=== PATIENT | male | born 1955 | race Caucasian/White ===

== ENCOUNTER 2017-02-20 10:47 | Emergency (ER) | payer OTHER ==
[~2017-02-20] VITALS: Ht 188 cm; Wt 87.3 kg
[~2017-02-20 10:47] MED LIST: ANDROGEL5 GM TD; BYSTOLIC10 MG PO; CALCIUM ACETAT667 MG PO; CARDIZEM CD,CA120 MG PO; FEOSOL325 MG PO; FUROSEMIDE40 MG PO; Flomax PO; GAS-X80 MG PO; GLUCOPHAGE1000 MG PO; INSULIN ISOPHANE SC; KAYEXALATE15 GM/60 M PO; LEVOTHYROXINE200 MC1 PO; LIPITOR10 MG PO; LO-DOSE ASPIRIN81 M1 PO; Levothroid,Synthroid PO; MOTRIN600 MG PO; NIFEDIPINE ER60 MG PO; NORCO 5/3251 TABLET PO; NOVOLIN,HU100 UNITS1 SC; RENA-VITE RX T1 EACH PO; SODIUM BICARBO325 MG PO; TAMSULOSIN HCL0.4 MG PO; THERAGRAN1 TABLET PO; VALIUM2 MG PO; VITAMIN D1000 INTUN PO; VITAMIN D32000 UNI1 PO; Vicodin,Lortab 5/500 PO; [UNRECOGNIZED DRUG - OTHER] PO
[2017-02-20] MEDS ORDERED: LEVO-T75 MCG PO (10:59)
[2017-02-20] MEDS ORDERED: RENAL-VITE TAB0.8 MG PO (10:59)
[2017-02-20] MEDS ORDERED: MINOXIDIL2.5 MG PO (11:00)
[2017-02-20] MEDS ORDERED: LEXAPRO20 MG PO (11:00)
[2017-02-20] MEDS ORDERED: LABETALOL HCL200 MG PO (11:02)
[2017-02-20] MEDS ORDERED: PERCOCET 5/31 TABLET PO (14:54)
[2017-02-20 15:30] VITALS: BP 186/87
[2017-02-20] MEDS ORDERED: FLEXERIL10 MG PO (15:47)
== END 2017-02-20 15:33 | disposition home or self-care (01) ==
LOC: EME 10:47
DX: S50.01XA Contusion of right elbow, initial encounter (principal); M25.551 Pain in right hip; W10.1XXA Fall (on)(from) sidewalk curb, initial encounter; Y92.89 Other specified places as the place of occurrence of the external cause; Z89.512 Acquired absence of left leg below knee; I12.0 Hypertensive chronic kidney disease with stage 5 chronic kidney disease or end stage renal disease; N18.6 End stage renal disease; Z99.2 Dependence on renal dialysis; E11.9 Type 2 diabetes mellitus without complications; Z79.82 Long term (current) use of aspirin; Z86.73 Personal history of transient ischemic attack (TIA), and cerebral infarction without residual deficits; Z88.1 Allergy status to other antibiotic agents; Z88.6 Allergy status to analgesic agent; Z91.040 Latex allergy status
CPT/HCPCS: 73080; 73502; 99281; 99284; J2270

== ENCOUNTER → 2017-05-14 | Outpatient (CLI) | payer OTHER ==
[~2017-05-14] VITALS: Ht 188 cm; Wt 86.2 kg
[~2017-05-14] MED LIST changes: +FLEXERIL10 MG PO; +LABETALOL HCL200 MG PO; +LEVO-T75 MCG PO; +LEXAPRO20 MG PO; +MINOXIDIL2.5 MG PO; +PERCOCET 5/31 TABLET PO; +RENAL-VITE TAB0.8 MG PO; +SYMAX DUOTAB0.375 MG PO
[2017-05-14 10:08] LABS: HEMATOCRIT 36.1 % (38.0-50.0)
[2017-05-14 10:19] LABS: CHLORIDE 93 mEq/L (99-109); POTASSIUM 4.9 mEq/L (3.7-5.4); SODIUM 136 mEq/L (136-147)
[2017-05-14 10:20] LABS: GLUCOSE 105 mg/dL (70-99)
[2017-05-14 10:22] LABS: ANION GAP 15 MEQ/L (2-14)
[2017-05-14 10:24] LABS: GFR ESTIMATE (CALCULATED) 12 mL/min/
[2017-05-14 10:25] LABS: UREA NITROGEN (BUN) 42 mg/dL (9-23)
[2017-05-14 10:36] LABS: POINT-OF-CARE METER ID UU14107333
== END | disposition home or self-care (01) ==
LOC: AMB 09:07
PROVIDERS: Internal Medicine Gastroenterology
PROC: 0DJD8ZZ Inspection of Lower Intestinal Tract, Via Natural or Artificial Opening Endoscopic (ICD-10-PCS; principal; 2017-05-14)
DX: Z12.11 Encounter for screening for malignant neoplasm of colon (principal); K57.30 Diverticulosis of large intestine without perforation or abscess without bleeding; K64.8 Other hemorrhoids; K58.0 Irritable bowel syndrome with diarrhea; Z89.512 Acquired absence of left leg below knee; I12.9 Hypertensive chronic kidney disease with stage 1 through stage 4 chronic kidney disease, or unspecified chronic kidney disease; E11.22 Type 2 diabetes mellitus with diabetic chronic kidney disease; N18.9 Chronic kidney disease, unspecified; Z99.2 Dependence on renal dialysis; Z79.82 Long term (current) use of aspirin; Z86.73 Personal history of transient ischemic attack (TIA), and cerebral infarction without residual deficits; Z98.84 Bariatric surgery status; Z88.1 Allergy status to other antibiotic agents; Z88.6 Allergy status to analgesic agent
CPT/HCPCS: 80048; 82948; 85014; 85018; 93005

== ENCOUNTER 2017-06-11 07:05 | Day surgery (SDC) | payer OTHER ==
[~2017-06-11] VITALS: Ht 188 cm; Wt 84.0 kg
[2017-06-11 08:47] LABS: POINT-OF-CARE METER ID UU13113819
[2017-06-11 09:11] LABS: METH RESISTANT S AUREUS PCR NEGATIVE (NEGATIVE); PROBE CHECK PASS; SPECIMEN PROCESSING CONTROL PASS
== END 2017-06-11 09:10 | disposition home or self-care (01) ==
LOC: CATH 07:05
PROVIDERS: Surgery
PROC: 057Y3ZZ Dilation of Upper Vein, Percutaneous Approach (ICD-10-PCS; principal; 2017-06-11)
DX: T82.858A Stenosis of other vascular prosthetic devices, implants and grafts, initial encounter (principal); I12.0 Hypertensive chronic kidney disease with stage 5 chronic kidney disease or end stage renal disease; E11.22 Type 2 diabetes mellitus with diabetic chronic kidney disease; N18.6 End stage renal disease; Z99.2 Dependence on renal dialysis; Z86.73 Personal history of transient ischemic attack (TIA), and cerebral infarction without residual deficits; I83.90 Asymptomatic varicose veins of unspecified lower extremity
CPT/HCPCS: 82948; 87641; C1725; C1769; C1894; J1644; J2250; J3010

== ENCOUNTER 2017-07-10 08:07 | Day surgery (SDC) | payer OTHER ==
[~2017-07-10] VITALS: Ht 188 cm; Wt 83.0 kg
[2017-07-10 09:12] LABS: HEMATOCRIT 33.6 % (38.0-50.0); MCH 31.2 PG (29.0-34.0); MCV 100.9 FL (86-99); MEAN PLAT.VOLUME 10.2 uM^3 (9.0-12.4); PLATELET COUNT 219 K/uL (156-360); RBC DIS.WIDTH-CV 13.2 % (11.8-14.6); RBC DIS.WIDTH-SD 49.5 % (39-53); RED BLOOD COUNT 3.33 M/uL (4.00-5.50)
[2017-07-10 09:35] LABS: ANION GAP 14 MEQ/L (2-14); CHLORIDE 97 MEQ/L (99-109); POTASSIUM 4.9 MEQ/L (3.7-5.4); SAMPLE HEMOLYSIS CHECK 0; SAMPLE ICTERIC CHECK 0; SAMPLE LIPEMIA CHECK 0; SODIUM 138 MEQ/L (136-147)
[2017-07-10 09:41] LABS: GFR ESTIMATE (CALCULATED) 11 mL/min/; GLUCOSE 102 mg/dL (70-99); UREA NITROGEN (BUN) 54 mg/dL (9-23)
[2017-07-10 10:07] LABS: METH RESISTANT S AUREUS PCR POSITIVE (NEGATIVE)
[2017-07-10 10:11] LABS: PROBE CHECK PASS
[2017-07-10 10:20] VITALS: BP 183/80
[2017-07-10 13:20] LABS: POINT-OF-CARE METER ID UU13113675
[2017-07-10 13:42] VITALS: BP 164/80
[2017-07-10 14:24] VITALS: BP 160/70
== END 2017-07-10 14:28 | disposition home or self-care (01) ==
LOC: SDC 08:07
PROVIDERS: Surgery
PROC: 05HY33Z Insertion of Infusion Device into Upper Vein, Percutaneous Approach (ICD-10-PCS; principal; 2017-07-10)
PROC: B51W1ZZ Fluoroscopy of Dialysis Shunt/Fistula using Low Osmolar Contrast (ICD-10-PCS; principal; 2017-07-10)
PROC: 3E03317 Introduction of Other Thrombolytic into Peripheral Vein, Percutaneous Approach (ICD-10-PCS; principal; 2017-07-10)
PROC: 05WY07Z Revision of Autologous Tissue Substitute in Upper Vein, Open Approach (ICD-10-PCS; principal; 2017-07-10)
DX: T82.41XA Breakdown (mechanical) of vascular dialysis catheter, initial encounter (principal); I12.0 Hypertensive chronic kidney disease with stage 5 chronic kidney disease or end stage renal disease; E11.22 Type 2 diabetes mellitus with diabetic chronic kidney disease; N18.6 End stage renal disease; Z99.2 Dependence on renal dialysis; Z86.73 Personal history of transient ischemic attack (TIA), and cerebral infarction without residual deficits; E03.9 Hypothyroidism, unspecified; R94.31 Abnormal electrocardiogram [ECG] [EKG]
CPT/HCPCS: 80048; 82948; 85027; 87641; C1769; C1894; J0690; J1644; J2405; J2720; J3010

== ENCOUNTER 2017-07-29 12:45 | Day surgery (SDC) | payer OTHER ==
[2017-07-29 15:32] LABS: METH RESISTANT S AUREUS PCR POSITIVE (NEGATIVE)
[2017-07-29 15:37] LABS: PROBE CHECK PASS
== END 2017-07-29 16:33 | disposition home or self-care (01) ==
LOC: CATH 12:45
PROVIDERS: Surgery
DX: T82.858A Stenosis of other vascular prosthetic devices, implants and grafts, initial encounter (principal); N18.6 End stage renal disease; Z99.2 Dependence on renal dialysis
CPT/HCPCS: 87641; C1725; C1769; C1894; J1644; J2250; J3010

== ENCOUNTER 2017-12-23 12:10 | Day surgery (SDC) | payer OTHER ==
[~2017-12-23] VITALS: Ht 188 cm; Wt 85.0 kg
[~2017-12-23 12:10] MED LIST changes: +FLOMAX0.4 MG PO; +IMODIUM A-D2 M2 PO
[2017-12-23 13:04] LABS: HEMATOCRIT 38.1 % (38.0-50.0); HEMOGLOBIN 12.3 G/DL (12.5-16.6); MCH 32.1 PG (29.0-34.0); MCHC 32.3 G/DL (30.0-36.0); MCV 99.5 FL (86-99); PLATELET COUNT 244 K/uL (156-360); RBC DIS.WIDTH-SD 50.7 % (39-53); RED BLOOD COUNT 3.83 M/uL (4.00-5.50); WHITE BLOOD COUNT 6.5 K/uL (4.1-10.2)
[2017-12-23 13:23] VITALS: BP 142/80
[2017-12-23 13:41] LABS: CHLORIDE 93 MEQ/L (99-109); POTASSIUM 3.9 MEQ/L (3.7-5.4); SODIUM 139 MEQ/L (136-147)
[2017-12-23 13:47] LABS: CREATININE 2.8 MG/DL (0.6-1.3); GFR ESTIMATE (CALCULATED) 25 mL/min/ (58.99-99999); GLUCOSE 86 mg/dL (70-99); UREA NITROGEN (BUN) 18 mg/dL (9-23)
[2017-12-23 15:55] VITALS: BP 155/69
[2017-12-23 16:32] VITALS: BP 149/66
== END 2017-12-23 16:45 | disposition home or self-care (01) ==
LOC: SDC 12:10
PROVIDERS: Surgery
PROC: 05WY07Z Revision of Autologous Tissue Substitute in Upper Vein, Open Approach (ICD-10-PCS; principal; 2017-12-23)
DX: T82.510A Breakdown (mechanical) of surgically created arteriovenous fistula, initial encounter (principal); I12.0 Hypertensive chronic kidney disease with stage 5 chronic kidney disease or end stage renal disease; E11.22 Type 2 diabetes mellitus with diabetic chronic kidney disease; N18.6 End stage renal disease; Z99.2 Dependence on renal dialysis; Z86.73 Personal history of transient ischemic attack (TIA), and cerebral infarction without residual deficits; M19.90 Unspecified osteoarthritis, unspecified site; I83.93 Asymptomatic varicose veins of bilateral lower extremities; Z84.1 Family history of disorders of kidney and ureter; Z83.3 Family history of diabetes mellitus; Z80.0 Family history of malignant neoplasm of digestive organs; Z88.1 Allergy status to other antibiotic agents; Z91.041 Radiographic dye allergy status
CPT/HCPCS: 80048; 85027; 87641; 93005; J0690; J1644; J2250; J2720; S0020

== ENCOUNTER 2018-02-08 18:29 | Emergency (ER) | payer OTHER ==
[~2018-02-08] VITALS: Ht 188 cm; Wt 88.1 kg
[2018-02-08 22:46] VITALS: BP 194/93
== END 2018-02-08 22:47 | disposition home or self-care (01) ==
LOC: EME 18:29
DX: S51.802A Unspecified open wound of left forearm, initial encounter (principal); S70.02XA Contusion of left hip, initial encounter; W18.30XA Fall on same level, unspecified, initial encounter; Y93.K1 Activity, walking an animal; Z89.512 Acquired absence of left leg below knee; I12.9 Hypertensive chronic kidney disease with stage 1 through stage 4 chronic kidney disease, or unspecified chronic kidney disease; E11.22 Type 2 diabetes mellitus with diabetic chronic kidney disease; N18.9 Chronic kidney disease, unspecified; Z99.2 Dependence on renal dialysis; F41.9 Anxiety disorder, unspecified; F32.9 Major depressive disorder, single episode, unspecified; Z86.73 Personal history of transient ischemic attack (TIA), and cerebral infarction without residual deficits; Z79.82 Long term (current) use of aspirin; Z88.1 Allergy status to other antibiotic agents; Z88.6 Allergy status to analgesic agent
CPT/HCPCS: 73502; 99281; 99284

== ENCOUNTER 2018-02-25 07:22 | Day surgery (SDC) | payer OTHER ==
[~2018-02-25] VITALS: Ht 188 cm; Wt 84.7 kg
== END 2018-02-25 10:23 | disposition home or self-care (01) ==
LOC: CATH 07:22
PROVIDERS: Surgery
DX: T82.858A Stenosis of other vascular prosthetic devices, implants and grafts, initial encounter (principal); Y83.2 Surgical operation with anastomosis, bypass or graft as the cause of abnormal reaction of the patient, or of later complication, without mention of misadventure at the time of the procedure; I12.0 Hypertensive chronic kidney disease with stage 5 chronic kidney disease or end stage renal disease; E11.22 Type 2 diabetes mellitus with diabetic chronic kidney disease; N18.6 End stage renal disease; Z99.2 Dependence on renal dialysis; Z86.73 Personal history of transient ischemic attack (TIA), and cerebral infarction without residual deficits
CPT/HCPCS: 82948; 87641; C1725; C1769; C1894; J1200; J1644; J2250; J2765; J2930; J3010

== ENCOUNTER 2018-04-21 11:34 | Day surgery (SDC) | payer OTHER ==
[~2018-04-21] VITALS: Ht 188 cm; Wt 86.0 kg
[~2018-04-21 11:34] MED LIST changes: +ASPIRIN81 M2 PO; +LEVOTHYROXINE300 MCG PO
== END 2018-04-21 18:55 | disposition home or self-care (01) ==
LOC: SDC → CATH 11:34
PROC: 4A023N7 Measurement of Cardiac Sampling and Pressure, Left Heart, Percutaneous Approach (ICD-10-PCS; principal; 2018-04-21)
PROC: B2111ZZ Fluoroscopy of Multiple Coronary Arteries using Low Osmolar Contrast (ICD-10-PCS; principal; 2018-04-21)
DX: I25.10 Atherosclerotic heart disease of native coronary artery without angina pectoris (principal); I25.84 Coronary atherosclerosis due to calcified coronary lesion; I12.0 Hypertensive chronic kidney disease with stage 5 chronic kidney disease or end stage renal disease; E11.22 Type 2 diabetes mellitus with diabetic chronic kidney disease; N18.6 End stage renal disease; Z99.2 Dependence on renal dialysis; E11.51 Type 2 diabetes mellitus with diabetic peripheral angiopathy without gangrene; I65.22 Occlusion and stenosis of left carotid artery; Z98.84 Bariatric surgery status; Z79.82 Long term (current) use of aspirin; Z88.1 Allergy status to other antibiotic agents; Z88.8 Allergy status to other drugs, medicaments and biological substances
CPT/HCPCS: 87641; C1769; C1887; J0360; J1200; J1644; J2250; J2765; J2930; J3010